=== PATIENT | female | born 1995 | race Caucasian/White ===

== ENCOUNTER 2020-03-10 06:32 | Inpatient (IN) | payer MEDICAID ==
[~2020-03-10] VITALS: Ht 167.6 cm; Wt 125.1 kg
[2020-03-10] MEDS ORDERED: acetaminophen 325mg tablet PO PRN ×2 (09:25)
[2020-03-10] MEDS ORDERED: NICOTINE POLACRILEX 2 MG LOZENGE BC PRN (09:25)
[2020-03-10] MEDS ORDERED: mag hydrox/Alum hydrox/simeth 30ml oral suspension PO PRN (09:25)
[2020-03-10] MEDS ORDERED: traZODone 50mg tablet PO PRN (09:25)
[2020-03-10] MEDS ORDERED: loperamide 2mg capsule PO PRN (09:25)
[2020-03-10] MEDS ORDERED: magnesium hydroxide 30ml (MOM) UD suspension PO PRN (09:25)
[2020-03-10] MEDS ORDERED: CLON-369 PO (10:14)
[2020-03-10] MEDS ORDERED: FLUO40CA PO (10:14)
[2020-03-10] MEDS ORDERED: BUPR150T6 PO (10:14)
[2020-03-10] MEDS ORDERED: ARIP5TAB14 PO (10:14)
[2020-03-10] MEDS ORDERED: ALB0.5UD IH (10:15)
[2020-03-10 10:16] VITALS: BP 156/69
[2020-03-10] MEDS ORDERED: albuterol 2.5 MG/3 ML nebule NEB PRN (11:50)
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
[2020-03-10] MEDS: temazepam 15mg capsule PO PRN (20:18)
[2020-03-10] MEDS: clonazePAM 1mg tablet PO SCH (20:18)
[2020-03-10] MEDS: prazosin 5mg capsule PO SCH (20:18)
[2020-03-10 20:44] VITALS: BP 129/82
[2020-03-10] MEDS ORDERED: lurasidone 20mg tablet PO SCH (21:00)
[2020-03-10] MEDS: LORazepam 1 MG tablet PO PRN (23:18)
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
[2020-03-11] MEDS: clonazePAM 1mg tablet PO SCH ×2 (07:40→20:46)
[2020-03-11] MEDS: FLUoxetine 20mg capsule PO SCH (07:40)
[2020-03-11 07:43] LABS: CHOL/HDL RATIO 3.1 (0.00-4.99); CHOLESTEROL 202 MG/DL (0-200); HDL CHOLESTEROL 65 MG/DL (35-60); LDL CHOLESTEROL 128 MG/DL (50-100); TRIGLYCERIDES 120 MG/DL (20-135)
[2020-03-11 07:47] VITALS: BP 111/62
[2020-03-11] MEDS ORDERED: buproprion 150mg XL (24-hour) tablet PO SCH (08:00)
[2020-03-11] MEDS ORDERED: FLUoxetine 20mg capsule PO SCH (08:00)
[2020-03-11] MEDS ORDERED: FLU VACC QS2020-21(6MOS UP)/PF 60 MCG/0.5 ML SYRINGE IMVAC ONE (10:00)
[2020-03-11] MEDS: LORazepam 1 MG tablet PO PRN (14:50)
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
[2020-03-11 20:44] VITALS: BP 131/65
[2020-03-11] MEDS: temazepam 15mg capsule PO PRN (20:46)
[2020-03-11] MEDS: prazosin 5mg capsule PO SCH (20:46)
[2020-03-11] MEDS: lurasidone 20mg tablet PO SCH (20:48)
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
[2020-03-12] MEDS: LORazepam 1 MG tablet PO PRN (02:21)
[2020-03-12 07:25] VITALS: BP 123/61
[2020-03-12] MEDS: FLUoxetine 20mg capsule PO SCH (07:49)
[2020-03-12] MEDS: buproprion 150mg XL (24-hour) tablet PO SCH (07:49)
[2020-03-12] MEDS: clonazePAM 1mg tablet PO SCH (07:50)
[2020-03-12] MEDS ORDERED: clonazePAM 1mg tablet PO PRN (08:00)
--- NOTE | 2020-03-12 10:00 | NUR ---
Group Therapy: Process Group This Clinicians goals for this process group were as follows: (1) Ask scaling questions about Patients current anxiety, depression, and irritability symptoms as a check-in. (2) Share with patients psychoeducation about personal boundariesrigid, porous, and healthy. (3) Share psychoeducation on different types of personal boundariesphysical, intellectual, emotional, sexual, material, timeand discuss Rights of assertive individuals. (4) Engage patients in discussion of the topics discussed within the group milieu. Patient presented as properly oriented x4 during the process group. She arrived approximately 20 minutes into the process group and did not answer initial scaling questions regarding the acuity of her anxiety, depression, and anger/irritability symptoms. Patient was dressed in nondescript, personal clothing that were appropriate within the milieu. Patient presented with disheveled hair. Psychomotor activity was unremarkable. Patient's thought content was clear, and concrete. Patient's thought process was clear, coherent, and linear. This Clinician did not observe Patient responding to any internal stimuli during session. The rate, latency, and tone of Patients speech was within normal limits. Patients speech was clear, and understandable. Patient maintained regular eye contact with this Clinician. Patient presented in calm euthymic mood, with congruent affect during the process group. Patient presented as open, cooperative, verbally engaged when addressed by this Clinician, and nonobtrusive within the group milieu. Patient made numerous insightful comments about personal boundaries and was able to identify certain characteristics of rigid, and porous boundaries that she sometimes sees in herself. Paulie Marsh MA, OFELIA Addendum: 03/12/20 at 1130 by Paulie Marsh Amended: Links added.
--- NOTE | 2020-03-12 11:35 | NUR ---
1:1-Safety Planning Presenting Issues: Pt is wanting to d/c, 5150 will tomorrow morning. Interventions: SS met w/pt and engaged her in safety planning activities to mitigate the risk of pt impulsively acting on her SI after d/c. Per session, pt reports that she's never attempted suicide before nor has she intentionally injured herself before. Pt states, that she would call the Suicide Hotline and follow their recommendation, this is what she's done before. In addition, pt reports that she has support of her partner, partner's father, her own mother & brother. SS informed pt that SS will contact pt's partner to engage pt's partner in safety planning and dcp activities. Pt is agreeable to this. Plan: SS will consult w/attending physician re d/c for tomorrow. SS will coordinate dcp & transportation w/[facility]. Kristal Sal LCSW Addendum: 03/12/20 at 1206 by Kristal Sal Amended: Links added.
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
[2020-03-12 19:00] VITALS: BP 144/79
[2020-03-12] MEDS: lurasidone 20mg tablet PO SCH (21:32)
[2020-03-12] MEDS: prazosin 5mg capsule PO SCH (21:33)
[2020-03-12] MEDS ORDERED: LURA40TA3 PO (22:30)
[2020-03-12] MEDS ORDERED: NICO-668 BC (22:30)
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
[2020-03-13] MEDS: temazepam 15mg capsule PO PRN (02:11)
--- NOTE | 2020-03-13 02:12 | NUR ---
Restoril given for sleep as patient is now awake, states she can't sleep.
[2020-03-13] MEDS: buproprion 150mg XL (24-hour) tablet PO SCH (07:43)
[2020-03-13] MEDS: FLUoxetine 20mg capsule PO SCH (07:43)
[2020-03-13 08:38] VITALS: BP 133/68
--- NOTE | 2020-03-13 09:20 | NUR ---
Discharge Presenting Issues: Pt's scheduled to d/c today, pending transportation from [facility]. Interventions: SS had t/c w/[facility] and finalized transportation services, per t/c pt will be picked up @ 10:00 AM by Cardiac Technician from [facility]. Care team informed. Plan: Pt to discharge this morning and will follow up with [facility] for outpatient care. Kristal Sal LCSW Addendum: 03/13/20 at 0930 by Kristal MITCHELL Amended: Links added.
--- NOTE | 2020-03-13 12:26 | NUR ---
NURSING DISCHARGE NOTE All personal belongings inventoried per JAMI Gamboa and returned to pt upon discharge. Medications from the pharmacy picked up and signed off back to the pt. Pt denies SI or plans. She called her significant other and hung up with a smile. Pt stated, "we had a nice talk." Pt declined smoking cessation stating, "I don't smoke.'" Pt picked up by [facility] to be returned home. Pt verbalizes understanding of her discharge instructions and prescribed medications.
== END 2020-03-13 11:53 | disposition home or self-care (01) | DRG 751 ==
LOC: EEVIPCON 10:00 → ADULT MH 10:00
PROVIDERS: ADMIT Psychiatry & Neurology Psychiatry; ATTEND Psychiatry & Neurology Psychiatry
DX: F33.2 Major depressive disorder, recurrent severe without psychotic features (principal); F41.1 Generalized anxiety disorder; R45.851 Suicidal ideations; E66.9 Obesity, unspecified; F42.9 Obsessive-compulsive disorder, unspecified; Z79.899 Other long term (current) drug therapy; Z56.0 Unemployment, unspecified; Z68.41 Body mass index [BMI] 40.0-44.9, adult; Z23 Encounter for immunization
CPT/HCPCS: 36415; 80061; 83036; 87081; 94640; Q2039